=== PATIENT | male | born 1990 | race Hispanic/Latino ===

== ENCOUNTER 2022-07-01 10:30 | Emergency (ER) | payer SELFPAY ==
--- OUTSIDE RECORDS SUMMARY | 2022-07-01 10:33 | XMS REPORT | Continuity of Care Document ---
:1990 Author Organization [facility] t Address [facility] [place] [address] Care Team Providers Name Role Phone PCP, PATIENT DOES NOT HAVE A Primary Care Physician Unavaila JAY Alvarez Attending Clinician Unavailable Problems This patient has no known problems. Allergies, Adverse Reactions, Alerts Allergy Allergy Status Severity Reaction(s) Onset Inactive Treating Comm ents Source Name Type Date Date Clinician NO KNOWN Drug [facility]ations This patient has no known medications. Procedures This patient has no known procedures. Encounters Start End Encounter Admission Attending Care Care Encounter Source Date/Time Date/Time Type Type Clinicians Facility Department ID 2022-04-06 2022-04-06 Emergency X SOURAV GIRALDO [id number] [facility] 04:52:00 05:10:00 JAY [facility] Results This patient has no known results.
--- NOTE | 2022-07-01 12:11 | RAD REPORT ---
EXAM DESCRIPTION: RAD - Chest Pa And Lat (2 Views) - 07/01/2022 12:06 pm CLINICAL HISTORY: COUGH COMPARISON: No comparisons FINDINGS: Lines: None. Lungs: No evidence of edema or pneumonia. Pleural: No significant pleural effusions or pneumothorax. Cardiac: The heart size is within normal limits. Mediastinum: Within normal limits. Bones: No acute fractures. Other: None IMPRESSION: No acute cardiopulmonary disease.
--- NOTE | 2022-07-01 12:51 | EDPHYS ---
Physician Documentation [facility] Name: Jose Luis Nicholson Age: 31 yrs Sex: Male : 1990 Arrival Date: 07/01/2022 Time: 10:32 Bed 17 Private MD: ED Physician Chris Shipman HPI: 07/01 10:47 This 31 yrs old Male presents to ER via Ambulatory with complaints of Cough, jr11 Shortness Of Breath. 10:47 The patient or guardian reports cough, that is intermittent, worse at night. Onset: The jr11 symptoms/episode began/occurred 3 day(s) ago. Severity of symptoms: At their worst the symptoms were moderate, in the emergency department the symptoms are actually worse. Modifying factors: The symptoms are alleviated by nothing, the symptoms are aggravated by nothing. Associated signs and symptoms: Pertinent positives: rhinorrhea, nasal congestion. intermittently smokes tobacco . Historical: - Allergies: 10:46 No Known Allergies; jh5 - PMHx: 10:46 heart burn; [facility] - Immunization history:: Adult Immunizations up to date. - Social history:: Smoking status: Patient reports the use of cigarette tobacco products, denies chronic smoking, but will smoke occasionally. ROS: 10:47 All other systems are negative. jr11 Exam: 10:47 Constitutional: This is a well developed, well nourished patient who is awake, alert, jr11 and in no acute distress. Head/Face: Normocephalic, atraumatic. Eyes: Extra-ocular motions intact. Lids and lashes normal. Conjunctiva and sclera are non-icteric and not injected. Cornea within normal limits. Periorbital areas with no swelling, redness, or edema. ENT: boggy nasal mucosa Chest/axilla: Normal chest wall appearance and motion. Nontender with no deformity. No lesions are appreciated. Cardiovascular: Regular rate and rhythm with a normal S1 and S2. No gallops, murmurs, or rubs. Normal PMI, no JVD. No pulse deficits. Respiratory: Lungs have equal breath sounds bilaterally, clear to auscultation and percussion. No rales, rhonchi or wheezes noted. No increased work of breathing, no retractions or nasal flaring. Abdomen/GI: Soft, non-tender, with normal bowel sounds. No distension or tympany. No guarding or rebound. No evidence of tenderness throughout. Back: No spinal tenderness. No costovertebral tenderness. Full range of motion. Skin: Warm, dry with normal turgor. Normal color with no rashes, no lesions, and no evidence of cellulitis. MS/ Extremity: Pulses equal, no cyanosis. Neurovascular intact. Full, normal range of motion. Neuro: Awake and alert, GCS 15, oriented to person, place, time, and situation. No gross motor or sensory deficits. Vital Signs: 10:40 BP 143 / 95; Pulse 60; Resp 16; Temp 98.6; Pulse Ox 97% ; Weight 102.06 kg; Height 5 [facility] ft. 8 in. (172.72 cm); Pain 0/10; 11:26 BP 122 / 87; Pulse 59; Resp 20 S; Pulse Ox 99% on R/A; mb8 12:45 BP 129 / 70; Pulse 68; Resp 18; Temp 98.1; Pulse Ox 99% on R/A; Pain 4/10; mb8 10:40 Body Mass Index 34.21 (102.06 kg, 172.72 cm) [facility] MDM: 10:45 Patient medically screened. jr11 10:47 Differential Diagnosis: Bronchitis Influenza Upper Respiratory Infection. Data jr11 reviewed: vital signs, nurses notes. ED course: Pt is a well appearing 31 y/o with a FLU like illness, PERC negative. We will do viral markers, XR, reassess. No hypoxia, CTAB, no CP. . 12:48 ED course: Vitals normal, no distress, given dyspnea will rx ronny and betina for jr11 atypical PNA. 07/01 10:46 Order name: Influenza Screen (a \\T\\ B); Complete Time: 12:21 jr11 07/01 10:46 Order name: Chest Pa And Lat (2 Views) XRAY; Complete Time: 12:21 jr11 07/01 10:49 Order name: Influenza Screen (A ; Complete Time: 12:21 EDMS 07/01 10:52 Order name: COVID-19 SARS RT PCR (Document "Date of Onset" if Symptomatic) mb8 Administered Medications: No medications were administered Disposition Summary: 07/01/22 12:50 Discharge Ordered Location: Home [facility] Condition: Stable jr11 Diagnosis - Acute bronchitis, unspecified jr11 Discharge Instructions: - Discharge Summary Sheet jr11 - Acute Bronchitis, Adult jr11 Forms: - Medication Reconciliation Form jr11 - Thank You Letter jr11 - Antibiotic Education jr11 - Prescription Opioid Use jr11 Prescriptions: - Tessalon Perles 100 mg Oral Capsule - take 1 capsule by ORAL route every 8 hours As needed; 15 capsule; Refills: 0, jr11 Product Selection Permitted - Zithromax Z-Ernie 250 mg Oral Tablet - take 1 tablet by ORAL route as directed for 5 days Day 1 - take two (2) tablets jr11 one time. Day 2, 3, 4 , 5 take one (1) tablet once daily.; 6 tablet; Refills: 0, Product Selection Permitted Signatures: Dispatcher [employer] Amelia Ruiz RN RN jh5 Chris Shipman MD MD jr11
--- NOTE | 2022-07-01 12:51 | ER ---
Nurse's Notes [facility] Name: Jose Luis Nicholson Age: 31 yrs Sex: Male : 1990 Arrival Date: 07/01/2022 Time: 10:32 Bed 17 Private MD: Diagnosis: Acute bronchitis, unspecified Presentation: 07/01 10:40 Chief complaint: Patient states: 3 days of cough, post nasal drip, SOB, throat pain, jh5 hot/cold feelings... at home COVID was negative. Coronavirus screen: Vaccine status: Patient reports being unvaccinated. Client denies travel out of the [place] in the last 14 days. Ebola Screen: Patient negative for fever greater than or equal to 101.5 degrees Fahrenheit, and additional compatible Ebola Virus Disease symptoms Patient denies exposure to infectious person. Patient denies travel to an Ebola-affected area in the 21 days before illness onset. Initial Sepsis Screen: Does the patient meet any 2 criteria? No. Patient's initial sepsis screen is negative. Does the patient have a suspected source of infection? No. Patient's initial sepsis screen is negative. Risk Assessment: Do you want to hurt yourself or someone else? Patient reports no desire to harm self or others. Onset of symptoms was June 26, 2022. 10:40 Method Of Arrival: Ambulatory [facility] 10:40 Acuity: ERASMO 3 jh5 Triage Assessment: 10:46 General: Appears in no apparent distress. Behavior is calm, cooperative, appropriate [facility] for age. Pain: Denies pain. Respiratory: Reports shortness of breath at rest on exertion cough that is dry, Onset: The symptoms/episode began/occurred gradually, the patient has mild shortness of breath. Historical: - Allergies: 10:46 No Known Allergies; jh5 - PMHx: 10:46 heart burn; 5 - Immunization history:: Adult Immunizations up to date. - Social history:: Smoking status: Patient reports the use of cigarette tobacco products, denies chronic smoking, but will smoke occasionally. Screenin:54 Abuse screen: Denies threats or abuse. Denies injuries from another. Nutritional mb8 screening: No deficits noted. Tuberculosis screening: No symptoms or risk factors identified. Fall Risk None identified. Assessment: 10:53 Cardiovascular: No deficits noted. Heart tones S1 S2 Capillary refill < 3 seconds mb8 Patient's skin is warm and dry. Respiratory: Airway is patent Respiratory effort is even, unlabored, Respiratory pattern is regular, symmetrical, Breath sounds are clear bilaterally. EENT: Reports sore throat. 10:55 Cardiovascular: Rhythm is. mb8 12:11 Reassessment: Patient and/or family updated on plan of care and expected duration. Pain mb8 level reassessed. Patient is alert, oriented x 3, equal unlabored respirations, skin warm/dry/pink. Vital Signs: 10:40 BP 143 / 95; Pulse 60; Resp 16; Temp 98.6; Pulse Ox 97% ; Weight 102.06 kg; Height 5 [facility] ft. 8 in. (172.72 cm); Pain 0/10; 11:26 BP 122 / 87; Pulse 59; Resp 20 S; Pulse Ox 99% on R/A; mb8 12:45 BP 129 / 70; Pulse 68; Resp 18; Temp 98.1; Pulse Ox 99% on R/A; Pain 4/10; mb8 10:40 Body Mass Index 34.21 (102.06 kg, 172.72 cm) 5 ED Course: 10:32 Patient arrived in ED. mr 10:33 Chris Shipman MD is Attending Physician. jr11 10:37 Daniele Mcmillan RN is Primary Nurse. mb8 10:46 Triage completed. 5 10:46 Arm band placed on right wrist. 5 10:54 Patient has correct armband on for positive identification. Placed in gown. Bed in low mb8 position. Call light in reach. Side rails up X2. Client placed on continuous cardiac and pulse oximetry monitoring. NIBP monitoring applied. 10:55 No provider procedures requiring assistance completed. Patient did not have IV access mb8 during this emergency room visit. 10:56 COVID-19 SARS RT PCR (Document "Date of Onset" if Symptomatic) Sent. mb8 10:56 Influenza Screen (a \\T\\ B) Sent. mb8 10:56 Influenza Screen (A Sent. mb8 11:25 Resting quietly. Awaiting lab results, Awaiting for x-ray. mb8 12:07 Chest Pa And Lat (2 Views) XRAY In Process Unspecified. EDMS Administered Medications: No medications were administered Medication: 10:54 VIS not applicable for this client. mb8 Outcome: 12:50 Discharge ordered by . liana 12:56 Discharged to home ambulatory. mb8 12:56 Condition: stable 12:56 Discharge instructions given to patient, Instructed on discharge instructions, follow up and referral plans. medication usage, Demonstrated understanding of instructions, follow-up care, medications, Prescriptions given X 2. 12:57 Patient left the ED. mb8 Signatures: Dispatcher [employer] EDNJ Batsheva Tuttle Jessica RN RN jh5 Chris Shipman MD MD jr11 Daniele Mcmillan RN RN mb8
== END 2022-07-01 12:57 | disposition home or self-care (01) ==
LOC: ER 10:30
DX: J20.9 Acute bronchitis, unspecified (principal); Z20.822 Contact with and (suspected) exposure to COVID-19; F17.210 Nicotine dependence, cigarettes, uncomplicated
CPT/HCPCS: 71046; 87804; 99283; U0003

== ENCOUNTER 2023-05-10 11:53 | Emergency (ER) | payer SELFPAY ==
--- OUTSIDE RECORDS SUMMARY | 2023-05-10 11:56 | XMS REPORT | Continuity of Care Document ---
:1990 Author Organization [facility] t Address [address] [place] [address] [place] [id number] Care Team Providers Name Role Phone PCP, PATIENT DOES NOT HAVE A Primary Care Physician Unavaila JAY Alvarez Attending Clinician Unavailable Problems This patient has no known problems. Allergies, Adverse Reactions, Alerts Allergy Allergy Status Severity Reaction(s) Onset Inactive Treating Comm ents Source Name Type Date Date Clinician NO KNOWN Drug [facility] Medications This patient has no known medications. Procedures This patient has no known procedures. Encounters Start End Encounter Admission Attending Care Care Encounter Source Date/Time Date/Time Type Type Clinicians Facility Department ID 2022-04-06 2022-04-06 Emergency X SOURAV GIRALDO [id number] [facility] 04:52:00 05:10:00 JAY [facility] Results This patient has no known results.
[2023-05-10] MEDS ORDERED: IBUPROFEN 400 MG TAB ONE (12:30)
[2023-05-10] MEDS ORDERED: HYDROCODONE/APAP 5/325 MG TAB ONE (12:30)
--- NOTE | 2023-05-10 13:06 | RAD REPORT ---
EXAM DESCRIPTION: RAD - Foot Right 3 View - 05/10/2023 12:36 pm CLINICAL HISTORY: Pain;Smash injury COMPARISON: No comparisons TECHNIQUE: Right foot, 3 views. FINDINGS: Nonspecific crescentic lucency along the proximal phalanx fifth digit proximal metaphysis, could relate to a healing or healed fracture. No other displaced fracture, dislocation or periosteal reaction. No air or foreign body in the soft tissues. IMPRESSION: Nonspecific crescentic lucency along the proximal phalanx fifth digit proximal metaphysi s, could relate to a healing or healed fracture.
--- NOTE | 2023-05-10 13:13 | EDPHYS ---
Physician Documentation [facility] Name: Jose Luis Nicholson Age: 32 yrs Sex: Male : 1990 Arrival Date: 05/10/2023 Time: 11:53 Bed 19 Private MD: ED Physician Tone Iraheta HPI: 05/10 12:08 This 32 yrs old Male presents to ER via Wheelchair with complaints of Foot snw Injury. 12:08 The patient presents with an injury, pain, that is acute. The complaints affect the snw right ankle and lateral aspect of right foot. Context: The problem was sustained at work, resulted from a direct blow, the patient can partially bear weight, kicked wood. Onset: The symptoms/episode began/occurred suddenly, 1 week(s) ago, and became persistent. The patient has not experienced similar symptoms in the past. The patient has not recently seen a physician. Historical: - Allergies: 12:00 No Known Allergies; bp - PMHx: 12:00 heart burn; bp - Immunization history:: Adult Immunizations up to date. - Social history:: Smoking status: Patient denies any tobacco usage or history of. ROS: 12:08 Constitutional: Negative for fever, chills, and weight loss, Eyes: Negative for injury, snw pain, redness, and discharge, ENT: Negative for injury, pain, and discharge, Neck: Negative for injury, pain, and swelling, Cardiovascular: Negative for chest pain, palpitations, and edema, Respiratory: Negative for shortness of breath, cough, wheezing, and pleuritic chest pain, Abdomen/GI: Negative for abdominal pain, nausea, vomiting, diarrhea, and constipation, Back: Negative for injury and pain, : Negative for injury, bleeding, discharge, and swelling, Skin: Negative for injury, rash, and discoloration, Neuro: Negative for headache, weakness, numbness, tingling, and seizure, Psych: Negative for depression, anxiety, suicide ideation, homicidal ideation, and hallucinations. 12:08 MS/extremity: Positive for injury or acute deformity, decreased range of motion, pain, swelling, of the right foot. Exam: 12:07 Constitutional: This is a well developed, well nourished patient who is awake, alert, snw and in no acute distress. Head/Face: Normocephalic, atraumatic. Eyes: Pupils equal round and reactive to light, extra-ocular motions intact. Lids and lashes normal. Conjunctiva and sclera are non-icteric and not injected. Cornea within normal limits. Periorbital areas with no swelling, redness, or edema. Chest/axilla: Normal chest wall appearance and motion. Nontender with no deformity. No lesions are appreciated. Cardiovascular: Regular rate and rhythm with a normal S1 and S2. No gallops, murmurs, or rubs. Normal PMI, no JVD. No pulse deficits. Respiratory: Lungs have equal breath sounds bilaterally, clear to auscultation and percussion. No rales, rhonchi or wheezes noted. No increased work of breathing, no retractions or nasal flaring. Abdomen/GI: Soft, non-tender, with normal bowel sounds. No distension or tympany. No guarding or rebound. No evidence of tenderness throughout. Back: No spinal tenderness. No costovertebral tenderness. Full range of motion. Skin: Warm, dry with normal turgor. Normal color with no rashes, no lesions, and no evidence of cellulitis. Neuro: Awake and alert, GCS 15, oriented to person, place, time, and situation. Cranial nerves II-XII grossly intact. Motor strength 5/5 in all extremities. Sensory grossly intact. Cerebellar exam normal. Normal gait. Psych: Awake, alert, with orientation to person, place and time. Behavior, mood, and affect are within normal limits. 12:07 Musculoskeletal/extremity: Extremities: grossly normal except: noted in the right foot: contusion, swelling, tenderness, ROM: limited active range of motion due to pain, limited passive range of motion due to pain, Circulation is intact in all extremities. Sensation intact. Weight bearing: can bear weight with assistance only. Vital Signs: 11:59 BP 151 / 88; Pulse 67; Resp 16; Temp 98; Pulse Ox 98% ; Weight 104.33 kg; Height 5 ft. bp 9 in. ; 13:00 BP 146 / 78; Pulse 68; Resp 16; Pulse Ox 98% on R/A; db 11:59 Body Mass Index 33.96 (104.33 kg, 175.26 cm) bp MDM: 12:03 Patient medically screened. snw 12:10 Differential diagnosis: dislocation, closed fracture, contusion, tendonitis. Data snw reviewed: vital signs, nurses notes. Counseling: I had a detailed discussion with the patient and/or guardian regarding: the historical points, exam findings, and any diagnostic results supporting the discharge/admit diagnosis, the presence of at least one elevated blood pressure reading (>120/80) during this emergency department visit, radiology results, the need for outpatient follow up, for definitive care. Special discussion: I have referred the patient to see his PCP for further evaluation of high blood pressure. Based on the history and exam findings, there is no indication for further emergent testing or inpatient evaluation. I discussed with the patient/guardian the need to see the orthopedic surgeon for further evaluation of the symptoms. I discussed with the patient/guardian the need to see the primary care provider for further evaluation of the symptoms. 05/10 12:02 Order name: Foot Right 3 View XRAY; Complete Time: 13:07 snw 05/10 12:54 Order name: Walking boot; Complete Time: 13:43 snw Administered Medications: 12:21 Drug: [place] PO 5 mg-325 mg 1 tabs Route: PO; db 13:47 Follow up: Response: No adverse reaction db 12:21 Drug: Ibuprofen PO 400 mg Route: PO; db 13:47 Follow up: Response: No adverse reaction db Disposition: 17:45 Co-signature as Attending Physician, Tone Iraheta MD I reviewed the patient's care rn provided by the Advanced Practice Provider and agree with the diagnosis and treatment plan. Disposition Summary: 05/10/23 13:13 Discharge Ordered Location: Home snw Condition: Stable snw Diagnosis - Sprain of foot snw - Fracture of proximal phalanx of lesser toe(s) snw Followup: snw - With: Emergency Department - When: As needed - Reason: Worsening of condition Followup: snw - With: Private Physician - When: 5 - 6 days - Reason: Recheck today's complaints, Continuance of care, Re-evaluation by your physician Discharge Instructions: - Discharge Summary Sheet snw - Foot Sprain snw - RICE Therapy for Routine Care of Injuries snw - Toe Fracture snw - Walking Boot, Adult snw Forms: - Work release form snw - Medication Reconciliation Form snw - Thank You Letter snw - Antibiotic Education snw - Prescription Opioid Use snw - Patient Portal Instructions snw Prescriptions: - Voltaren Arthritis Pain 1 % Topical gel - apply 4 gram by TOPICAL route 4 times per day apply to foot; for foot includes snw sole/toes/top of foot; 50 gram; Refills: 0, Product Selection Permitted Signatures: Dispatcher [employer] EDKristen Rosario CAR PINCHER-C CAR PINCHER-Csnw Tone Iraheta MD MD rn Peltier, Brian, RN RN Gayathri Harris RN RN db
--- NOTE | 2023-05-10 13:13 | ER ---
Nurse's Notes [facility] Name: Jose Luis Nicholson Age: 32 yrs Sex: Male : 1990 Arrival Date: 05/10/2023 Time: 11:53 Bed 19 Private MD: Diagnosis: Sprain of foot;Fracture of proximal phalanx of lesser toe(s) Presentation: 05/10 11:59 Chief complaint: Patient states: R LATERAL FOOT AND 5TH TOE PAIN AFTER KICKING WOOD AT WORK. Coronavirus screen: At this time, the client does not indicate any symptoms associated with coronavirus-19. Ebola Screen: No symptoms or risks identified at this time. Initial Sepsis Screen: Does the patient meet any 2 criteria? No. Patient's initial sepsis screen is negative. Does the patient have a suspected source of infection? No. Patient's initial sepsis screen is negative. Risk Assessment: Do you want to hurt yourself or someone else? Patient reports no desire to harm self or others. Onset of symptoms is unknown. 11:59 Method Of Arrival: Wheelchair bp 11:59 Acuity: ERASMO 3 bp Triage Assessment: 12:00 General: Appears uncomfortable, Behavior is calm, cooperative, appropriate for age. bp Pain: Complains of pain in right foot. EENT: No deficits noted. Neuro: No deficits noted. Cardiovascular: No deficits noted. Respiratory: No deficits noted. GI: No signs and/or symptoms were reported involving the gastrointestinal system. : No signs and/or symptoms were reported regarding the genitourinary system. Derm: No deficits noted. Musculoskeletal: No deficits noted. Injury Description: Deformity sustained to right foot. Historical: - Allergies: 12:00 No Known Allergies; bp - PMHx: 12:00 heart burn; bp - Immunization history:: Adult Immunizations up to date. - Social history:: Smoking status: Patient denies any tobacco usage or history of. Screenin:05 [facility] ED Fall Risk Assessment (Adult) History of falling in the last 3 months, db including since admission No falls in past 3 months (0 pts) Confusion or Disorientation No (0 pts) Intoxicated or Sedated No (0 pts) Impaired Gait No (0 pts) Mobility Assist Device Used No (0 pt) Altered Elimination No (0 pt) Score/Fall Risk Level 0 - 2 = Low Risk Oriented to surroundings, Maintained a safe environment. Abuse screen: Denies threats or abuse. Denies injuries from another. Nutritional screening: No deficits noted. Tuberculosis screening: No symptoms or risk factors identified. Assessment: 12:05 Reassessment: Patient appears in no apparent distress at this time. Patient and/or db family updated on plan of care and expected duration. Pain level reassessed. Patient is alert, oriented x 3, equal unlabored respirations, skin warm/dry/pink. General: Appears in no apparent distress. comfortable, Behavior is calm, cooperative. Pain: Complains of pain in right foot. Musculoskeletal: Circulation, motion, and sensation intact. 13:15 Reassessment: Patient appears in no apparent distress at this time. Patient and/or db family updated on plan of care and expected duration. Pain level reassessed. Patient is alert, oriented x 3, equal unlabored respirations, skin warm/dry/pink. 13:46 Reassessment: Patient states feeling better. Patient states symptoms have improved. db Vital Signs: 11:59 BP 151 / 88; Pulse 67; Resp 16; Temp 98; Pulse Ox 98% ; Weight 104.33 kg; Height 5 ft. bp 9 in. ; 13:00 BP 146 / 78; Pulse 68; Resp 16; Pulse Ox 98% on R/A; db 11:59 Body Mass Index 33.96 (104.33 kg, 175.26 cm) bp ED Course: 11:55 Patient arrived in ED. mr 12:00 Triage completed. bp 12:00 Kristen Guerrero FNP-C is PHCP. snw 12:00 Tone Iraheta MD is Attending Physician. snw 12:01 Arm band placed on. bp 12:05 Gayathri Sanabria, HA is Primary Nurse. db 12:37 Foot Right 3 View XRAY In Process Unspecified. EDMS 13:35 Patient did not have IV access during this emergency room visit. ORTHO BOOT. db 13:45 Patient has correct armband on for positive identification. Bed in low position. Call db light in reach. Side rails up X 1. Provided Education on: DISCHARGE AND FOLLOW UP. 13:45 No provider procedures requiring assistance completed. db Administered Medications: 12:21 Drug: [place] PO 5 mg-325 mg 1 tabs Route: PO; db 13:47 Follow up: Response: No adverse reaction db 12:21 Drug: Ibuprofen PO 400 mg Route: PO; db 13:47 Follow up: Response: No adverse reaction db Medication: 13:45 VIS not applicable for this client. db Outcome: 13:13 Discharge ordered by . marino 13:45 Discharged to home ambulatory, with family. db 13:45 Condition: stable 13:45 Discharge instructions given to patient, family, Instructed on discharge instructions, follow up and referral plans. Prescriptions given X 1. 13:47 Patient left the ED. db Signatures: Dispatcher [employer] EDKristen Rosario, MAINTENANCE SUPERVISOR ELECTRICAL-C MAINTENANCE SUPERVISOR ELECTRICAL-Csnw Batsheva Tuttle Brian, RN RN Gayathri Harris RN RN db
[2023-05-10 13:54] VITALS: TEMP 98; O2SAT 98
[2023-05-10 13:56] VITALS: BP 146/78
== END 2023-05-10 13:47 | disposition home or self-care (01) ==
LOC: ER 11:53
DX: S92.511A Displaced fracture of proximal phalanx of right lesser toe(s), initial encounter for closed fracture (principal); S93.601A Unspecified sprain of right foot, initial encounter